=== PATIENT | male | born 1935 | race Caucasian/White ===

== ENCOUNTER 2017-05-13 05:48 | Day surgery (SDC) | payer MEDICARE, BC ==
[2017-05-12 14:27] VITALS: BMI 20.3
[2017-05-13 07:02] LABS: INR-International Normal Ratio 1.3; PTT 36.9 SEC (22.9-36.1); Prothrombin Time 16.8 SEC (12.0-14.7)
[2017-05-13 07:06] LABS: #Basophils 0.1 thou/uL (0.0-0.2); #Eosinphils 0.3 thou/uL (0.0-0.7); #Lymphocytes 1.4 thou/uL (1.20-3.40); #Monocytes 0.7 thou/uL (0.11-0.59); #Neutrophils 3.4 thou/uL (1.40-6.50); %Basophils 0.9 % (0.0-1.0); %Eosinophils 5.5 % (0.0-10.0); %Lymphocytes 23.7 % (21.0-51.0); %Monocytes 12.4 % (0.0-10.0); %Neutrophils 57.5 % (42.0-75.0); Hemoglobin 7.9 g/dL (14.0-18.0); Mean Corpuscular HGB CONC 29.9 g/dL (32.0-36.0); Mean Corpuscular Hemoglobin 23.1 pg (27.0-31.0); Mean Corpuscular Volume 77.2 fl (80.0-94.0); Mean Platelet Volume 8.5 fL (7.4-10.4); Platelet Count 202 thou/uL (130-400); RBC Distribution Width 16.1 % (11.5-14.5); White Blood Cell (WBC) Count 5.9 thou/uL (4.8-10.8)
[2017-05-13 07:32] LABS: Hypochromia SLIGHT = 6-15 cells (100X) (0-5/hpf); MDiff Complete? YES; Microcytosis SLIGHT = 6-15 cells (100X) (0-5/hpf); Polychromasia SLIGHT = 2-3 cells (100X) (0-2/hpf)
[2017-05-13 07:43] LABS: Anion Gap 11 mmol/L (10-20); BUN (Urea Nitrogen) 38 mg/dL (8.4-25.7); Calc. Creatinine Clearance 28 mL/min (70-130); Calcium 9.3 mg/dL (7.8-10.44); Carbon Dioxide 28 mmol/L (23-31); Chloride 98 mmol/L (98-107); Estimated GFR-MDRD 35; Glucose 114 mg/dL (83-110); Sodium 133 mmol/L (136-145)
[2017-05-13] MEDS ORDERED: Fentanyl 100 MCG/2 ML VIAL ONE (07:48)
[2017-05-13] MEDS ORDERED: Midazolam HCl 2 mg/2 ml Vial ONE (07:48)
[2017-05-13] MEDS ORDERED: CEFAZOLIN/Water 2 GM/20 ML SYRINGE ONE (08:01)
[2017-05-13] MEDS ORDERED: CEFAZOLIN 1 GM VIAL ONE (08:01)
[2017-05-13] MEDS ORDERED: Gentamicin 80 MG/2 ML VIAL ONE (08:17)
[2017-05-13] MEDS ORDERED: Propofol 500 MG/50 ML VIAL ONE (08:50)
[2017-05-13] MEDS ORDERED: Ondansetron HCl/PF 4 MG/2 ML Vial IVP PRN (10:47)
[2017-05-13] MEDS ORDERED: diphenhydrAMINE 25 MG CAP PO PRN (10:47)
[2017-05-13] MEDS ORDERED: traMADol HCl 50 MG TAB PO PRN (10:47)
[2017-05-13] MEDS ORDERED: Acetaminophen 325 MG TAB PO PRN (10:47)
[2017-05-13] MEDS ORDERED: Acetaminophen/Codeine 30-300mg Tablet PO PRN ×2 (11:00)
[2017-05-13] MEDS ORDERED: HYDROcodone/Acetaminophen 5/325 mg Tablet PO PRN ×2 (11:00)
--- NOTE | 2017-05-13 12:00 | RAD ---
AP CHEST: Indication: AICD placement. Comparison: PA and lateral chest, 07-10-15 FINDINGS: There is worsening cardiomegaly. There is mild pulmonary vascular congestion. There are infrahilar ai rspace opacities bilaterally which may be related to airspace edema versus pneumonia. There are small bilateral pleural effusions, right greater than left. There is subcutaneous emphysema overlying the left chest wall possibly related to patient's recent placement of an AICD. No definite pneumothorax i s evident. IMPRESSION: 1. Findings suggesting mild CHF. 2. Subcutaneous emphysema overlying the left chest wall likely related to the patient's recent AICD p lacement. No definite pneumothorax is demonstrated. POS: [facility]
[2017-05-13] MEDS ORDERED: traMADol HCl 50 MG TAB ONE ×2 (12:39→14:00)
[2017-05-13] MEDS ORDERED: Acetaminophen/Codeine 30-300mg Tablet ONE (14:52)
[2017-05-13] MEDS ORDERED: Propofol 200 MG/20 ML VIAL ONE (15:39)
[2017-05-13] MEDS ORDERED: PHENYLEPHRINE-NS 100 MCG/ML 10 ML SYRINGE ONE (15:39)
[2017-05-13] MEDS ORDERED: ePHEDrine/0.9% NaCl/PF SYRINGE 50 mg/10 ml ONE (15:39)
[2017-05-13] MEDS ORDERED: Iopamidol 370 76% 50 ML VIAL FS ONE (17:21)
--- NOTE | 2017-05-28 13:28 | EKG ---
Test Reason : PREOP Blood Pressure : / mmHG Vent. Rate : 073 BPM Atrial Rate : 083 BPM P-R Int : 000 ms QRS Dur : 128 ms QT Int : 440 ms P-R-T Axes : 000 -78 096 degrees QTc Int : 484 ms Atrial fibrillation Left axis deviation Right bundle branch block Inferior infarct (cited on or before 05-NOV-2014) Cannot rule out Anterior infarct (cited on or before 05-NOV-2014) Abnormal ECG When compared with ECG of 23-OCT-2015 11:55, Right bundle branch block is now Present Confirmed by EDGAR HERNANDEZ MD ([id number]) on 05/28/2017 1:27:42 PM Referred By: NARINDER Confirmed By:EDGAR HERNANDEZ MD
--- NOTE | 2017-05-29 18:56 | OP ---
DATE OF PROCEDURE: 05/13/2017 [employer]EARCH [employer]OC[employer]ATE QUALITY CONTROL QC: Chacho Yang DO PREOPERATIVE DIAGNOSES: 1. 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 2. Class III congestive heart failure with left bundle branch block and ventricular dyssynchrony. 3. Chronic atrial fibrillation with slow ventricular response. 4. Requirement for negatively chronotropic medication. POSTOPERATIVE DIAGNOSES: Inducible ventricular tachycardia/ventricular fibrillation (correctly detected and terminated by Medtronic [id number] implantable cardioverter defibrillator generator with right ventricular transvenous defibrillator lead and left ventricular pacing lead). PROCEDURES: 1. Electrophysiologic study (defibrillation threshold testing) during ICD implantation. 2. Implantation of biventricular non-thoracotomy ICD generator with right ventricular transvenous defibrillator lead and left ventricular pacing lead. GENERATOR: Medtronic [id number] SERIAL NUMBER: [id number] TRANSVENOUS DEFIBRILLATOR LEAD: Medtronic [id number] SERIAL NUMBER: [id number] LEFT VENTRICULAR LEAD (VIA CORONARY SINUS): Medtronic [id number] SERIAL NUMBER: [id number] COMPLICATIONS: None. DESCRIPTION OF PROCEDURE: This patient was brought to the cardiac electrophysiology lab in a nonsedated and postabsorptive state. The left chest area was prepped and sterile drapes applied. Lidocaine 1% was utilized for local infiltration. Sedation was provided by the Department of Anesthesiology. An incision was made beneath the left clavicle for access to the left subclavian vein and for construction of prepectoral pocket. The left subclavian vein was cannulated with a peel-away introducer for introduction of the right ventricular (RV) transvenous defibrillator lead. A second venipuncture was utilized for the left ventricular lead. At the RV apex, ventricular capture thresholds and measurements were as follows: Bipolar tip negative, 0.5 millisecond pulse width, 1.6 V, 5.3 mA, 365 ohms, 1.2 mV. The coronary sinus was cannulated and was visualized with contrast. A pulmonary artery catheter and Terumo Glidewire were utilized. The left ventricular lead was placed in a posterolateral cardiac vein. The left ventricular thresholds and measurements were as follows: Unipolar tip negative, 0.5 msec pulse width, 1.5 V, 5.3 mA, 338 ohms, 7.8 mV. The leads were secured with 0 Ethibond. The new ICD generator was attached to the preexisting leads. Ventricular fibrillation was induced utilizing a T shock method. Ventricular fibrillation was successfully terminated with energy levels of 25.0 joules with lead impedance of 30 ohms. All defibrillation was biphasic. The generator with leads were secured in the pocket with 0 Ethibond. Subsequent layers were closed with two layers of 2-0 PDS followed by subcuticular 5-0 PDS. A sterile bandage was applied and the patient returned to outpatient monitoring area in stable condition. IMPRESSION: Ventricular tachycardia/ventricular fibrillation (correctly detected and terminated by Medtronic [id number] ICD generator with right ventricular transvenous defibrillator lead and left ventricular pacing lead). DISPOSITION: This patient has received nonpharmacologic therapy for their risk of recurrent ventricular tachyarrhythmia. He will follow up in the Electrophysiology Clinic in approximately 2-3 weeks. Multiple sites within the right ventricle were tested for placement of the right ventricular lead and poor R-wave voltage was noted throughout the right ventricle. Ventricular fibrillation was appropriately sensed and no further revision was warranted. BLAKED
== END 2017-05-13 15:44 | disposition home or self-care (01) ==
LOC: CCL 05:48
PROC: 0JH608Z Insertion of Defibrillator Generator into Chest Subcutaneous Tissue and Fascia, Open Approach (ICD-10-PCS; principal; 2017-05-13)
PROC: 02HK3KZ Insertion of Defibrillator Lead into Right Ventricle, Percutaneous Approach (ICD-10-PCS; 2017-05-13)
DX: I49.01 Ventricular fibrillation (principal); I47.2 Ventricular tachycardia; I48.2 Chronic atrial fibrillation; I42.8 Other cardiomyopathies; I13.0 Hypertensive heart and chronic kidney disease with heart failure and stage 1 through stage 4 chronic kidney disease, or unspecified chronic kidney disease; E11.22 Type 2 diabetes mellitus with diabetic chronic kidney disease; N18.3 Chronic kidney disease, stage 3 (moderate); I50.42 Chronic combined systolic (congestive) and diastolic (congestive) heart failure; J44.9 Chronic obstructive pulmonary disease, unspecified; J45.909 Unspecified asthma, uncomplicated; E78.5 Hyperlipidemia, unspecified; Z88.8 Allergy status to other drugs, medicaments and biological substances; Z79.01 Long term (current) use of anticoagulants; Z79.84 Long term (current) use of oral hypoglycemic drugs; Z79.899 Other long term (current) drug therapy; Z98.890 Other specified postprocedural states
CPT/HCPCS: 33225; 33249; 71010; 80048; 85025; 85610; 85730; 93005; 93641; C1769; C1882; C1895; C1900; 93010; J0690; J1580; J2250; J2704; J3010; J3370

== ENCOUNTER 2017-06-18 09:58 | Inpatient (IN) | payer MEDICARE, BC ==
[2017-06-18 10:55] LABS: INR-International Normal Ratio 1.5; PTT 35.7 SEC (22.9-36.1); Prothrombin Time 18.5 SEC (12.0-14.7)
--- NOTE | 2017-06-18 11:05 | RAD ---
CHEST 1 VIEW: HISTORY: Hypotension. Dyspnea. COMPARISON: 05/13/17. FINDINGS: Cardiac silhouette is magnified and enlarged. It is partially obscured by patchy bibasilar infiltrat es and pleural fluid. Pulmonary vasculature is upper limits of normal. Mediastinum is midline with dual-lead left subclavian cardiac electronic device. IMPRESSION: 1. Bibasilar infiltrates, right greater than left, with pleural fluid. Pulmonary vasculature is not significantly engorged. Clinical correlation regarding other signs and symptoms of bibasilar pneumo nitis versus other cause for findings is required. 2. Cardiomegaly. POS: [facility]
[2017-06-18 11:12] LABS: ALT (SGPT) 12 U/L (8-55); AST (SGOT) 21 U/L (5-34); Albumin 3.4 g/dL (3.4-4.8); Alkaline Phosphatase 121 U/L (40-150); Anion Gap 13 mmol/L (10-20); BUN (Urea Nitrogen) 32 mg/dL (8.4-25.7); Bilirubin, Total 0.9 mg/dL (0.2-1.2); CK (CPK) 72 U/L (30-200); Calc. Creatinine Clearance 0 mL/min (70-130); Calcium 8.9 mg/dL (7.8-10.44); Carbon Dioxide 25 mmol/L (23-31); Chloride 102 mmol/L (98-107); Estimated GFR-MDRD 38; Globulin 3.4 g/dL (2.4-3.5); Glucose 114 mg/dL (83-110); Potassium 4.1 mmol/L (3.5-5.1); Protein, Total 6.8 g/dL (5.8-8.1); Sodium 136 mmol/L (136-145); Troponin I 0.197 ng/mL (< 0.028)
[2017-06-18 11:20] LABS: #Eosinphils 0.3 thou/uL (0.0-0.7); #Lymphocytes 1.3 thou/uL (1.20-3.40); #Monocytes 0.7 thou/uL (0.11-0.59); #Neutrophils 3.8 thou/uL (1.40-6.50); %Basophils 0.7 % (0.0-1.0); %Eosinophils 4.8 % (0.0-10.0); %Monocytes 11.6 % (0.0-10.0); %Neutrophils 61.9 % (42.0-75.0); Anisocytosis SLIGHT = 6-15 cells (100X) (0-5/hpf); Hemoglobin 7.5 g/dL (14.0-18.0); Hypochromia SLIGHT = 6-15 cells (100X) (0-5/hpf); MDiff Complete? YES; Mean Corpuscular HGB CONC 28.5 g/dL (32.0-36.0); Mean Corpuscular Hemoglobin 20.9 pg (27.0-31.0); Mean Corpuscular Volume 73.3 fl (80.0-94.0); Mean Platelet Volume 10.9 fL (7.4-10.4); Microcytosis SLIGHT = 6-15 cells (100X) (0-5/hpf); Platelet Count 161 thou/uL (130-400); RBC Distribution Width 17.2 % (11.5-14.5); Red Blood Cell (RBC) Count 3.57 mill/uL (4.70-6.10); Target Cells SLIGHT = 2-5 cells (100X) (0-1/hpf); White Blood Cell (WBC) Count 6.1 thou/uL (4.8-10.8)
[2017-06-18] MEDS ORDERED: Ondansetron ODT 4 MG TAB SL PRN (13:26)
[2017-06-18] MEDS ORDERED: Acetaminophen 325 MG TAB PO PRN ×2 (13:26→13:28)
[2017-06-18] MEDS ORDERED: Ondansetron HCl/PF 4 MG/2 ML Vial IVP PRN ×2 (13:26→13:28)
[2017-06-18 13:28] LABS: Bilirubin Negative (Negative); Blood, Urine Negative (Negative); Clarity CLEAR (Clear); Glucose, Urine (Dipstick) Negative (Negative); Leukocyte Negative (Negative); Nitrite Negative (Negative); Protein, Urine (Dipstick) Negative (Neg-Trace); Specific Gravity, Urine 1.014 (1.002-1.036); pH, Urine 7.5 (5.0-9.0)
[2017-06-18] MEDS ORDERED: Loperamide HCl 2 MG CAP PO PRN (13:28)
[2017-06-18] MEDS ORDERED: cefTRIAXone\\ROCEPHIN 1 GM in Sodium Chloride 0.9% 100 ML IVPB SCH (13:28)
[2017-06-18] MEDS ORDERED: Nitroglycerin 0.4 MG TAB (25 Tab Bottle) SL PRN (13:28)
[2017-06-18] MEDS ORDERED: Ondansetron ODT 4 MG TAB PO PRN (13:28)
[2017-06-18] MEDS ORDERED: Artificial Tears 18 DROP/0.9 ML EA EYE PRN (13:28)
[2017-06-18] MEDS ORDERED: hydrALAZINE 20 MG/ML VIAL SLOW IVP PRN (13:28)
[2017-06-18] MEDS ORDERED: Eucerin (Mineral Oil/Petrolatum,White) 30 gm Jar TOP PRN (13:28)
[2017-06-18] MEDS ORDERED: Dextrose 5% in Water 1,000 ML IV PRN (13:28)
[2017-06-18] MEDS ORDERED: HYDROcodone/Acetaminophen 5/325 mg Tablet PO PRN (13:28)
[2017-06-18] MEDS ORDERED: Mag-Al 1200 mg/1200 mg/30 ML UDCUP PO PRN (13:28)
[2017-06-18] MEDS ORDERED: Loratadine 10 MG TAB PO PRN (13:28)
[2017-06-18] MEDS ORDERED: Sodium Chloride 0.65% Nasal 44 ML BOT EA NARE PRN (13:28)
[2017-06-18] MEDS ORDERED: Zolpidem Tartrate 5 MG TAB PO PRN (13:28)
[2017-06-18] MEDS ORDERED: Milk Of Magnesia 30 ML UDCUP PO PRN (13:28)
[2017-06-18] MEDS ORDERED: Chloraseptic Spray 180 ml Bottle PO PRN (13:28)
[2017-06-18] MEDS ORDERED: Senokot 8.6 MG TAB PO PRN (13:28)
[2017-06-18] MEDS ORDERED: Dextrose 50% Abboject 50 ML SYRINGE SLOW IVP PRN (13:28)
[2017-06-18] MEDS ORDERED: Diabetic Tussin 200 MG/10 ML UDCUP PO PRN (13:28)
[2017-06-18 13:44] VITALS: BMI 23.1
[2017-06-18] MEDS ORDERED: Furosemide 20 MG/2 ML VIAL SLOW IVP SCH (13:45)
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
[2017-06-18 15:01] LABS: Troponin I 0.235 ng/mL (< 0.028)
[2017-06-18] MEDS ORDERED: HumaLOG 300 UNITS/3 ML VIAL SC PRN ×2 (15:01)
[2017-06-18] MEDS: Ferrous Sulfate 325 MG TAB PO SCH (16:46)
[2017-06-18 17:28] LABS: Troponin I 0.218 ng/mL (< 0.028)
[2017-06-18] MEDS: Apixaban 5 MG TAB PO SCH (21:12)
[2017-06-18] MEDS: Potassium Chloride 10 MEQ TAB PO SCH (21:12)
[2017-06-18] MEDS: Tamsulosin HCl 0.4 MG CAP PO SCH (21:13)
[2017-06-18] MEDS: Loratadine 10 MG TAB PO SCH (21:13)
[2017-06-19 06:14] LABS: Hemoglobin A1c 6.7 % (4.0-6.0)
[2017-06-19 06:16] LABS: #Basophils 0.1 thou/uL (0.0-0.2); #Eosinphils 0.3 thou/uL (0.0-0.7); #Lymphocytes 1.4 thou/uL (1.20-3.40); #Neutrophils 5.1 thou/uL (1.40-6.50); %Basophils 1.2 % (0.0-1.0); %Eosinophils 4.1 % (0.0-10.0); %Lymphocytes 17.7 % (21.0-51.0); Hemoglobin 8.4 g/dL (14.0-18.0); Mean Corpuscular HGB CONC 28.9 g/dL (32.0-36.0); Mean Corpuscular Hemoglobin 21.5 pg (27.0-31.0); Mean Corpuscular Volume 74.5 fl (80.0-94.0); Platelet Count 173 thou/uL (130-400); RBC Distribution Width 18.1 % (11.5-14.5); White Blood Cell (WBC) Count 7.9 thou/uL (4.8-10.8)
[2017-06-19 06:18] LABS: ALT (SGPT) 11 U/L (8-55); AST (SGOT) 22 U/L (5-34); Albumin 3.2 g/dL (3.4-4.8); Alkaline Phosphatase 116 U/L (40-150); Anion Gap 12 mmol/L (10-20); BUN (Urea Nitrogen) 35 mg/dL (8.4-25.7); Calc. Creatinine Clearance 29 mL/min (70-130); Calcium 8.9 mg/dL (7.8-10.44); Carbon Dioxide 25 mmol/L (23-31); Chloride 102 mmol/L (98-107); Estimated GFR-MDRD 33; Globulin 3.3 g/dL (2.4-3.5); Glucose 112 mg/dL (83-110); Iron 10 ug/dL (65-175); Iron Binding Capacity, Total 400 mcg/dL (261-462); Potassium 4.2 mmol/L (3.5-5.1); Protein, Total 6.5 g/dL (5.8-8.1); Sodium 135 mmol/L (136-145)
[2017-06-19] MEDS: Alogliptin 25 MG TAB PO SCH (08:54)
[2017-06-19] MEDS: Glimepiride 1 MG TAB PO SCH (08:54)
[2017-06-19] MEDS: Ferrous Sulfate 325 MG TAB PO SCH ×2 (08:55→16:27)
[2017-06-19] MEDS: Apixaban 5 MG TAB PO SCH ×2 (08:55→21:08)
[2017-06-19] MEDS: Potassium Chloride 10 MEQ TAB PO SCH ×2 (08:56→21:08)
[2017-06-19] MEDS: Finasteride 5 MG TAB PO SCH (08:56)
[2017-06-19] MEDS ORDERED: IRON SUCROSE COMPLEX 100 MG/5 ML SLOW IVP SCH (10:00)
--- NOTE | 2017-06-19 10:00 | PDOC.PN ---
- Subjective Encounter Start Date: 06/19/17 Encounter Start Time: 07:50 -: old records requested/rev pt is hard of hearing, daughter bedside, no fever - Objective Resuscitation Status: Resuscitation Status FULL:Full Resuscitation MAR Reviewed: Yes Vital Signs & Weight: Vital Signs (12 hours) Temp Pulse Resp BP Pulse Ox 06/19/17 07:30 98.3 F 81 16 118/70 97 06/19/17 04:56 98.1 F 79 16 114/63 96 Weight Weight 161 lb I&O: 06/18/17 06/19/17 06/20/17 06:59 06:59 06:59 Intake Total 1180 Output Total 200 Balance 980 Result Diagrams: 06/19/17 05:17 06/19/17 05:17 Additional Labs: Accuchecks 06/19/17 06/18/17 06/18/17 06:11 20:05 16:54 POC Glucose 121 H 140 H 192 H EKG Reviewed by me: Yes Phys Exam - Physical Examination Constitutional: NAD HEENT: PERRLA, moist MMs, sclera anicteric Neck: no JVD, supple Respiratory: no wheezing, no rales, no rhonchi Cardiovascular: RRR, no significant murmur, no rub Gastrointestinal: soft, non-tender, no distention, positive bowel sounds Musculoskeletal: pulses present, edema present Neurological: non-focal, normal sensation Psychiatric: normal affect, A&O x 3 Skin: no rash, normal turgor Dx/Plan (1) Symptomatic anemia Code(s): D64.9 - ANEMIA, UNSPECIFIED Status: Acute Comment: s/p 1 unit PRBC (2) Hypotension Status: Resolved (3) Community acquired bacterial pneumonia Code(s): J15.9 - UNSPECIFIED BACTERIAL PNEUMONIA Status: Acute (4) Alzheimer's dementia Code(s): G30.9 - ALZHEIMER'S DISEASE, UNSPECIFIED Status: Chronic (5) Anemia, normocytic normochromic Code(s): D64.9 - ANEMIA, UNSPECIFIED Status: Chronic (6) CKD (chronic kidney disease) stage 3, GFR 30-59 ml/min Code(s): N18.3 - CHRONIC KIDNEY DISEASE, STAGE 3 (MODERATE) Status: Chronic (7) Chronic atrial fibrillation Code(s): I48.2 - CHRONIC ATRIAL FIBRILLATION Status: Chronic (8) Chronic systolic (congestive) heart failure Code(s): I50.22 - CHRONIC SYSTOLIC (CONGESTIVE) HEART FAILURE Status: Chronic (9) DM type 2 (diabetes mellitus, type 2) Status: Chronic (10) Dyslipidemia Code(s): E78.5 - HYPERLIPIDEMIA, UNSPECIFIED Status: Chronic (11) H/O: CVA (cerebrovascular accident) Code(s): Z86.73 - PRSNL HX OF TIA (TIA), AND CEREB INFRC W/O RESID DEFICITS Status: Chronic (12) Hypertension Code(s): I10 - ESSENTIAL (PRIMARY) HYPERTENSION Status: Chronic Qualifiers: Hypertension type: essential hypertension Qualified Code(s): I10 - Essential (primary) hypertension (13) Physical deconditioning Code(s): R53.81 - OTHER MALAISE Status: Chronic (14) Protein-calorie malnutrition, moderate Code(s): E44.0 - MODERATE PROTEIN-CALORIE MALNUTRITION Status: Chronic - Plan cont current plan of care, plan discussed w/ family, continue antibiotics, PT/OT * continue rocephin and levaquin * will give one dose of IV venofer * repeat labs tomorrow * start lasix as per home dose * continue PT/OT * medication reviewed as below * symptomatic treatment * discussed with daughter * continue selected home meds. Review of Systems - Review of Systems Constitutional: negative: fever, chills, sweats, weakness, malaise, other ENT: negative: Ear Pain, Ear Discharge, Nose Pain, Nose Discharge, Nose Congestion, Mouth Pain, Mouth Swelling, Throat Pain, Throat Swelling, Other Respiratory: negative: Cough, Dry, Shortness of Breath, Hemoptysis, SOB with Excertion, Pleuritic Pain, Sputum, Wheezing Cardiovascular: negative: chest pain, palpitations, orthopnea, paroxysmal nocturnal dyspnea, edema, light headedness, other Gastrointestinal: negative: Nausea, Vomiting, Abdominal Pain, Diarrhea, Constipation, Melena, Hematochezia, Other Genitourinary: negative: Dysuria, Frequency, Incontinence, Hematuria, Retention , Other Musculoskeletal: negative: Neck Pain, Shoulder Pain, Arm Pain, Back Pain, Hand Pain, Leg Pain, Foot Pain, Other Skin: negative: Rash, Lesions, Juno, Bruising, Other - Medications/Allergies Allergies/Adverse Reactions: Allergies Allergy/AdvReac Type Severity Reaction Status Date / Time aspirin Allergy GI bleed Verified 10/14/15 16:25 lisinopril Allergy cough Verified 10/14/15 16:25 trospium Allergy Verified 06/18/17 13:37 Medications: Current Medications Acetaminophen (Tylenol) 650 mg PO Q4H PRN PRN Reason: Headache/Fever or Pain Hydrocodone Bitart/Acetaminophen ([place]ord 5/325) 1 tab PO Q4H PRN PRN Reason: Moderate Pain (4-6) Al Hydroxide/Mg Hydroxide (Maalox) 30 ml PO Q6H PRN PRN Reason: Heartburn or Indigestion Albuterol/Ipratropium (Duoneb) 3 ml NEB [id number] PRN PRN Reason: SOB &/or Wheezing Alogliptin Benzoate (Alogliptin) 12.5 mg PO DAILY [facility] Last Admin: 06/19/17 08:54 Dose: 12.5 mg Apixaban (Eliquis) 2.5 mg PO BID [facility] Last Admin: 06/19/17 08:55 Dose: 2.5 mg Artificial Tears (Tears Naturale) 0 drop EA EYE PRN PRN PRN Reason: Dry Eyes Dextrose/Water (Dextrose 50%) 25 gm SLOW IVP PRN PRN PRN Reason: Hypoglycemia Ferrous Sulfate (Feosol) 325 mg PO BID-[facility] Last Admin: 06/19/17 08:55 Dose: 325 mg Finasteride (Proscar) 5 mg PO DAILY [facility] Last Admin: 06/19/17 08:56 Dose: 5 mg Glimepiride (Amaryl) 0.5 mg PO QAM-[facility] Last Admin: 06/19/17 08:54 Dose: 0.5 mg Glucagon (Glucagon) 1 mg IM PRN PRN PRN Reason: Hypoglycemia Guaifenesin (Robitussin Sf) 200 mg PO Q4H PRN PRN Reason: Cough Hydralazine HCl (Apresoline) 10 mg SLOW IVP Q4H PRN PRN Reason: Systolic BP > 180 Dextrose/Water (D5w) 1,000 mls @ 0 mls/hr IV .Q0M PRN; As Directed PRN Reason: Hypoglycemia Levofloxacin 500 mg/ Device 100 mls @ 100 mls/hr IVPB 1100 [facility] Ceftriaxone Sodium 1 gm/ (Syringe 0.4 ml/ Sterile Water) 10 mls @ 120 mls/hr SLOW IVP 1100 JOSUE Insulin Human Lispro (Humalog) 0 units SC .MODERATE SLIDING SC PRN PRN Reason: Moderate Correctional Scale Insulin Human Lispro (Humalog) 0 units SC .BEDTIME SLIDING SC PRN PRN Reason: Bedtime Correctional Scale Loperamide HCl (Imodium) 2 mg PO PRN PRN PRN Reason: Diarrhea/Loose Stools Loratadine (Claritin) 10 mg PO [facility] Last Admin: 06/18/17 21:13 Dose: 10 mg Magnesium Hydroxide (Milk Of Magnesium) 30 ml PO DAILYPRN PRN PRN Reason: Constipation Mineral Oil/White Petrolatum (Eucerin Cream) 0 gm TOP BIDPRN PRN PRN Reason: Dry Skin Nitroglycerin (Nitrostat) 0.4 mg SL Q5MIN PRN PRN Reason: Chest Pain (Darifenacin Hydrobromide [ Darifenacin Er] 7.5 Mg) 7.5 mg PO 1200 JOSUE (Tadalafil [Cialis] (5 Mg)) 5 mg PO [facility] Ondansetron HCl (Zofran Odt) 4 mg PO Q6H PRN PRN Reason: Nausea/Vomiting Ondansetron HCl (Zofran) 4 mg IVP Q6H PRN PRN Reason: Nausea/Vomiting Pantoprazole Sodium (Protonix) 40 mg PO DAILY [facility] Last Admin: 06/19/17 08:56 Dose: 40 mg Phenol (Chloraseptic [place] 180 Ml Bot) 0 ml PO PRN PRN PRN Reason: Sore Throat Potassium Chloride (Klor-Con 10) 10 meq PO BID [facility] Last Admin: 06/19/17 08:56 Dose: 10 meq Senna (Senokot) 2 tab PO HSPRN PRN PRN Reason: Constipation Sodium Chloride ([place] Nasal [place] 0.65%) 0 ml EA NARE QIDPRN PRN PRN Reason: Nasal Congestion Tamsulosin HCl (Flomax) 0.4 mg PO [facility] Last Admin: 06/18/17 21:13 Dose: 0.4 mg Zolpidem Tartrate (Ambien) 5 mg PO HSPRN PRN PRN Reason: Insomnia
[2017-06-19] MEDS ORDERED: Iron Sucrose Complex 100 MG in Sodium Chloride 0.9% 100 ML IVPB SCH (11:00)
[2017-06-19] MEDS: cefTRIAXone\\ROCEPHIN 1 GM, Syringe 0.4 ML in Sterile Water 9.6 ML SLOW IVP SCH (11:23)
[2017-06-19] MEDS: Furosemide 40 MG TAB PO SCH (14:14)
[2017-06-19] MEDS ORDERED: Cyanocobalamin 1000 MCG/ML VIAL IM SCH (17:00)
[2017-06-19] MEDS: Tamsulosin HCl 0.4 MG CAP PO SCH (21:08)
[2017-06-19] MEDS: Loratadine 10 MG TAB PO SCH (21:09)
[2017-06-19] MEDS: PATIENT'S HOME MEDICATION PO SCH (21:09)
[2017-06-20 05:43] LABS: Anion Gap 17 mmol/L (10-20); BUN (Urea Nitrogen) 34 mg/dL (8.4-25.7); Calc. Creatinine Clearance 30 mL/min (70-130); Calcium 8.9 mg/dL (7.8-10.44); Carbon Dioxide 20 mmol/L (23-31); Chloride 103 mmol/L (98-107); Estimated GFR-MDRD 33; Glucose 88 mg/dL (83-110); Potassium 3.9 mmol/L (3.5-5.1); Sodium 136 mmol/L (136-145)
[2017-06-20 05:46] LABS: #Eosinphils 0.4 thou/uL (0.0-0.7); #Lymphocytes 1.4 thou/uL (1.20-3.40); #Neutrophils 4.2 thou/uL (1.40-6.50); %Basophils 0.6 % (0.0-1.0); %Eosinophils 5.9 % (0.0-10.0); %Lymphocytes 20.5 % (21.0-51.0); %Monocytes 13.8 % (0.0-10.0); %Neutrophils 59.3 % (42.0-75.0); Hemoglobin 8.7 g/dL (14.0-18.0); Mean Corpuscular HGB CONC 29.1 g/dL (32.0-36.0); Mean Corpuscular Hemoglobin 21.8 pg (27.0-31.0); Mean Corpuscular Volume 74.8 fl (80.0-94.0); Mean Platelet Volume 10.8 fL (7.4-10.4); Platelet Count 180 thou/uL (130-400); RBC Distribution Width 18.7 % (11.5-14.5); Red Blood Cell (RBC) Count 3.99 mill/uL (4.70-6.10)
[2017-06-20] MEDS: Apixaban 5 MG TAB PO SCH ×2 (09:00→21:01)
[2017-06-20] MEDS: Finasteride 5 MG TAB PO SCH (09:01)
[2017-06-20] MEDS: Potassium Chloride 10 MEQ TAB PO SCH ×2 (09:02→21:02)
[2017-06-20] MEDS: Furosemide 40 MG TAB PO SCH ×2 (09:02→14:33)
[2017-06-20] MEDS: Alogliptin 25 MG TAB PO SCH (09:03)
[2017-06-20] MEDS: Ferrous Sulfate 325 MG TAB PO SCH ×2 (09:04→16:43)
--- NOTE | 2017-06-20 10:48 | PDOC.PN ---
- Subjective Encounter Start Date: 06/20/17 Encounter Start Time: 07:10 pt had voiding difficulty last night, he is constipated, he is weak - Objective Resuscitation Status: Resuscitation Status FULL:Full Resuscitation MAR Reviewed: Yes Vital Signs & Weight: Vital Signs (12 hours) Temp Pulse Resp BP Pulse Ox 06/20/17 08:50 98.4 F 85 14 118/73 99 06/20/17 03:17 98.4 F 88 20 111/65 98 Weight Admit Weight 161 lb Weight 161 lb I&O: 06/19/17 06/20/17 06/21/17 06:59 06:59 06:59 Intake Total 1180 Output Total 200 Balance 980 Result Diagrams: 06/20/17 04:54 06/20/17 04:54 Additional Labs: Accuchecks 06/20/17 06/20/17 06/19/17 09:51 05:48 20:25 POC Glucose 98 89 110 06/19/17 06/19/17 16:44 11:34 POC Glucose 117 H 122 H EKG Reviewed by me: Yes Phys Exam - Physical Examination Constitutional: NAD HEENT: PERRLA, moist MMs, sclera anicteric Neck: no JVD, supple Respiratory: no wheezing, no rales, no rhonchi Cardiovascular: RRR, no significant murmur, no rub Gastrointestinal: soft, non-tender, no distention, positive bowel sounds Musculoskeletal: no edema, pulses present Neurological: non-focal, normal sensation, moves all 4 limbs Lymphatic: no nodes Psychiatric: normal affect Skin: no rash, normal turgor Dx/Plan (1) Symptomatic anemia Code(s): D64.9 - ANEMIA, UNSPECIFIED Status: Acute Comment: s/p 1 unit PRBC (2) Hypotension Status: Resolved (3) Community acquired bacterial pneumonia Code(s): J15.9 - UNSPECIFIED BACTERIAL PNEUMONIA Status: Acute (4) Alzheimer's dementia Code(s): G30.9 - ALZHEIMER'S DISEASE, UNSPECIFIED Status: Chronic (5) Anemia, normocytic normochromic Code(s): D64.9 - ANEMIA, UNSPECIFIED Status: Chronic (6) CKD (chronic kidney disease) stage 3, GFR 30-59 ml/min Code(s): N18.3 - CHRONIC KIDNEY DISEASE, STAGE 3 (MODERATE) Status: Chronic (7) Chronic atrial fibrillation Code(s): I48.2 - CHRONIC ATRIAL FIBRILLATION Status: Chronic (8) Chronic systolic (congestive) heart failure Code(s): I50.22 - CHRONIC SYSTOLIC (CONGESTIVE) HEART FAILURE Status: Chronic (9) DM type 2 (diabetes mellitus, type 2) Status: Chronic (10) Dyslipidemia Code(s): E78.5 - HYPERLIPIDEMIA, UNSPECIFIED Status: Chronic (11) H/O: CVA (cerebrovascular accident) Code(s): Z86.73 - PRSNL HX OF TIA (TIA), AND CEREB INFRC W/O RESID DEFICITS Status: Chronic (12) Hypertension Code(s): I10 - ESSENTIAL (PRIMARY) HYPERTENSION Status: Chronic Qualifiers: Hypertension type: essential hypertension Qualified Code(s): I10 - Essential (primary) hypertension (13) Physical deconditioning Code(s): R53.81 - OTHER MALAISE Status: Chronic (14) Protein-calorie malnutrition, moderate Code(s): E44.0 - MODERATE PROTEIN-CALORIE MALNUTRITION Status: Chronic - Plan cont current plan of care, plan discussed w/ family, continue antibiotics, PT/OT , respiratory therapy * stool softener today * medication reviewed as below * symptomatic treatment * continue levaquin * needs more PT. * discussed with daughter Review of Systems - Review of Systems Constitutional: weakness. negative: fever, chills, sweats, malaise, other ENT: negative: Ear Pain, Ear Discharge, Nose Pain, Nose Discharge, Nose Congestion, Mouth Pain, Mouth Swelling, Throat Pain, Throat Swelling, Other Respiratory: negative: Cough, Dry, Shortness of Breath, Hemoptysis, SOB with Excertion, Pleuritic Pain, Sputum, Wheezing Cardiovascular: negative: chest pain, palpitations, orthopnea, paroxysmal nocturnal dyspnea, edema, light headedness, other Gastrointestinal: Constipation. negative: Nausea, Vomiting, Abdominal Pain, Diarrhea, Melena, Hematochezia, Other Genitourinary: negative: Dysuria, Frequency, Incontinence, Hematuria, Retention , Other Musculoskeletal: negative: Neck Pain, Shoulder Pain, Arm Pain, Back Pain, Hand Pain, Leg Pain, Foot Pain, Other Skin: negative: Rash, Lesions, Juno, Bruising, Other - Medications/Allergies Allergies/Adverse Reactions: Allergies Allergy/AdvReac Type Severity Reaction Status Date / Time aspirin Allergy GI bleed Verified 10/14/15 16:25 lisinopril Allergy cough Verified 10/14/15 16:25 trospium Allergy Verified 06/18/17 13:37 Medications: Current Medications Acetaminophen (Tylenol) 650 mg PO Q4H PRN PRN Reason: Headache/Fever or Pain Hydrocodone Bitart/Acetaminophen ([place] 5/325) 1 tab PO Q4H PRN PRN Reason: Moderate Pain (4-6) Al Hydroxide/Mg Hydroxide (Maalox) 30 ml PO Q6H PRN PRN Reason: Heartburn or Indigestion Last Admin: 06/20/17 09:04 Dose: 30 ml Albuterol/Ipratropium (Duoneb) 3 ml NEB [id number] PRN PRN Reason: SOB &/or Wheezing Alogliptin Benzoate (Alogliptin) 12.5 mg PO DAILY [facility] Last Admin: 06/20/17 09:03 Dose: 12.5 mg Apixaban (Eliquis) 2.5 mg PO BID [facility] Last Admin: 06/20/17 09:00 Dose: 2.5 mg Artificial Tears (Tears Naturale) 0 drop EA EYE PRN PRN PRN Reason: Dry Eyes Dextrose/Water (Dextrose 50%) 25 gm SLOW IVP PRN PRN PRN Reason: Hypoglycemia Ferrous Sulfate (Feosol) 325 mg PO BID[facility] Last Admin: 06/20/17 09:04 Dose: 325 mg Finasteride (Proscar) 5 mg PO DAILY [facility] Last Admin: 06/20/17 09:01 Dose: 5 mg Furosemide (Lasix) 40 mg PO 0900,1400 [facility] Last Admin: 06/20/17 09:02 Dose: 40 mg [facility] Admin: 06/19/17 08:54 Dose: 0.5 mg Glucagon (Glucagon) 1 mg IM PRN PRN PRN Reason: Hypoglycemia Guaifenesin (Robitussin Sf) 200 mg PO Q4H PRN PRN Reason: Cough Hydralazine HCl (Apresoline) 10 mg SLOW IVP Q4H PRN PRN Reason: Systolic BP > 180 Dextrose/Water (D5w) 1,000 mls @ 0 mls/hr IV .Q0M PRN; As Directed PRN Reason: Hypoglycemia Levofloxacin 500 mg/ Device 100 mls @ 100 mls/hr IVPB 1100 [facility] Last Admin: 06/19/17 12:06 Dose: 100 mls Ceftriaxone Sodium 1 gm/ (Syringe 0.4 ml/ Sterile Water) 10 mls @ 120 mls/hr SLOW IVP 1100 [facility] Last Admin: 06/19/17 11:23 Dose: 10 mls Insulin Human Lispro (Humalog) 0 units SC .MODERATE SLIDING SC PRN PRN Reason: Moderate Correctional Scale Insulin Human Lispro (Humalog) 0 units SC .BEDTIME SLIDING SC PRN PRN Reason: Bedtime Correctional Scale Loperamide HCl (Imodium) 2 mg PO PRN PRN PRN Reason: Diarrhea/Loose Stools Loratadine (Claritin) 10 mg PO [facility] Last Admin: 06/19/17 21:09 Dose: 10 mg Magnesium Hydroxide (Milk Of Magnesium) 30 ml PO DAILYPRN PRN PRN Reason: Constipation Mineral Oil/White Petrolatum (Eucerin Cream) 0 gm TOP BIDPRN PRN PRN Reason: Dry Skin Nitroglycerin (Nitrostat) 0.4 mg SL Q5MIN PRN PRN Reason: Chest Pain Ondansetron HCl (Zofran Odt) 4 mg PO Q6H PRN PRN Reason: Nausea/Vomiting Ondansetron HCl (Zofran) 4 mg IVP Q6H PRN PRN Reason: Nausea/Vomiting Pantoprazole Sodium (Protonix) 40 mg PO DAILY [facility] Last Admin: 06/20/17 09:02 Dose: 40 mg (Darifenacin Hydrobromide [ Darifenacin Er] 7.5 Mg) 0 each PO 1200 [facility] Patient Own Medication (Patient's Home Medication) 0 each PO [facility] Last Admin: 06/19/17 21:09 Dose: 1 each Phenol (Chloraseptic [place] 180 Ml Bot) 0 ml PO PRN PRN PRN Reason: Sore Throat Polyethylene Glycol (Miralax) 17 gm PO DAILY [facility] Potassium Chloride (Klor-Con 10) 10 meq PO BID [facility] Last Admin: 06/20/17 09:02 Dose: 10 meq Senna (Senokot) 2 tab PO HSPRN PRN PRN Reason: Constipation Sodium Chloride ([place] Nasal [place] 0.65%) 0 ml EA NARE QIDPRN PRN PRN Reason: Nasal Congestion Tamsulosin HCl (Flomax) 0.4 mg PO HS [facility] Last Admin: 06/19/17 21:08 Dose: 0.4 mg Zolpidem Tartrate (Ambien) 5 mg PO HSPRN PRN PRN Reason: Insomnia
[2017-06-20] MEDS: Glimepiride 1 MG TAB PO SCH (11:19)
[2017-06-20] MEDS: cefTRIAXone\\ROCEPHIN 1 GM, Syringe 0.4 ML in Sterile Water 9.6 ML SLOW IVP SCH (11:20)
[2017-06-20] MEDS ORDERED: DARIFENACIN HYDROBROMIDE 7.5 MG PO SCH (12:00)
[2017-06-20] MEDS: PATIENT'S HOME MEDICATION PO SCH (21:01)
[2017-06-20] MEDS: Tamsulosin HCl 0.4 MG CAP PO SCH (21:02)
[2017-06-20] MEDS: Loratadine 10 MG TAB PO SCH (21:02)
[2017-06-21 08:00] LABS: #Basophils 0.1 thou/uL (0.0-0.2); #Eosinphils 0.6 thou/uL (0.0-0.7); #Lymphocytes 1.6 thou/uL (1.20-3.40); #Neutrophils 4.7 thou/uL (1.40-6.50); %Basophils 0.8 % (0.0-1.0); %Eosinophils 7.5 % (0.0-10.0); %Lymphocytes 19.9 % (21.0-51.0); %Monocytes 12.2 % (0.0-10.0); %Neutrophils 59.6 % (42.0-75.0); Hemoglobin 8.8 g/dL (14.0-18.0); Mean Corpuscular HGB CONC 29.4 g/dL (32.0-36.0); Mean Corpuscular Volume 74.7 fl (80.0-94.0); Mean Platelet Volume 10.7 fL (7.4-10.4); Platelet Count 175 thou/uL (130-400); White Blood Cell (WBC) Count 7.9 thou/uL (4.8-10.8)
[2017-06-21 08:03] LABS: Anion Gap 15 mmol/L (10-20); BUN (Urea Nitrogen) 31 mg/dL (8.4-25.7); Calc. Creatinine Clearance 29 mL/min (70-130); Carbon Dioxide 23 mmol/L (23-31); Cardiac Risk 2.9 (Less than 4.5); Chloride 102 mmol/L (98-107); Cholesterol 102 mg/dl (< 200 Desired); Estimated GFR-MDRD 33; Glucose 78 mg/dL (83-110); HDL Cholesterol 35 mg/dL (>60 Neg Risk); LDL Cholesterol, Calculated 53 mg/dL; Sodium 136 mmol/L (136-145); Triglycerides 72 mg/dL (Less than 150)
[2017-06-21] MEDS: Glimepiride 1 MG TAB PO SCH (08:17)
[2017-06-21] MEDS: Alogliptin 25 MG TAB PO SCH (08:18)
[2017-06-21] MEDS: Furosemide 40 MG TAB PO SCH (08:19)
[2017-06-21] MEDS: Apixaban 5 MG TAB PO SCH (08:19)
[2017-06-21] MEDS: Ferrous Sulfate 325 MG TAB PO SCH (08:20)
[2017-06-21] MEDS: Potassium Chloride 10 MEQ TAB PO SCH (08:20)
[2017-06-21] MEDS: Finasteride 5 MG TAB PO SCH (08:20)
[2017-06-21 08:36] LABS: Hypochromia MODERATE=16-30 cells (100X) (0-5/hpf); MDiff Complete? YES; Microcytosis SLIGHT = 6-15 cells (100X) (0-5/hpf); PLT Morphology Comment Appears Adequate; Polychromasia SLIGHT = 2-3 cells (100X) (0-2/hpf); Target Cells SLIGHT = 2-5 cells (100X) (0-1/hpf)
[2017-06-21] MEDS ORDERED: Polyethylene Glycol 3350 17 GM Packet PO SCH (09:00)
[2017-06-21 09:06] VITALS: BP 105/60; TEMP 97.8
--- NOTE | 2017-06-21 12:39 | DIS ---
DATE OF ADMISSION: 06/18/2017 DATE OF DISCHARGE: 06/21/2017 DISCHARGE DIAGNOSES: 1. Symptomatic anemia, status post 1 unit of packed red blood cells, stable. 2. Hypotension, resolved. 3. Community-acquired bacterial pneumonia, bibasilar, suspect gram positive cocci, improved. 4. Chronic normocytic anemia secondary to chronic kidney disease. 5. Chronic kidney disease, stage 3. 6. Chronic atrial fibrillation with chronic anticoagulation with Eliquis. 7. Hypertension, stable. 8. Dyslipidemia. 9. Physical deconditioning. 10. Right second toe superficial ulcer. CONSULTATIONS: None. PERTINENT LAB AND X-RAY FINDINGS: Creatinine ranged between 1.71-1.96, estimated GFR ranged between 33-38. Hemoglobin A1c 6.7. Lactic acid level 1.2, calcium 8.9. Troponin I ranged between 0.197-0.2 35. LFTs within normal limits. Albumin 3.4. Serum iron level 10, TIBC 400, percent saturation 3, f erritin 36.35. CBC showed a hemoglobin ranging between 7.5-8.8, MCV 75, platelet count 175. Stool H emoccult negative x1 on 06/18/2017. Blood culture x2 dated 06/18/2017 showed no growth at 48 hours. Urine culture dated 06/18/2017 showed less than 5000 colonies of nonhemolytic Streptococcus species. Respiratory virus panel by PCR 06/18/2017 negative. Portable chest x-ray dated 06/18/2017 showed b ibasilar infiltrates, right greater than left with associated pleural effusion. HOSPITAL COURSE: Patient was admitted to the telemetry unit after initially presenting with generali zed weakness and cough with shortness of breath. The patient underwent extensive evaluation includin g chest imaging showing evidence of bibasilar infiltrates concerning for pneumonitis/pneumonia. The patient received IV Rocephin and Levaquin and was treated for suspected community-acquired pneumonia. The patient was also noted with acute on chronic anemia in the context of chronic kidney disease. The patient received 1 unit of packed red blood cells and monitored with serial H&H's. The patient's overall hemoglobin remained stable through the remainder of the hospital course with stool Hemoccult negative x1. The patient also was noted with mild hypotension, which corrected after 1 unit of pack ed red blood cells. The patient was evaluated by physical and occupational therapy due to generalize d weakness, however, was ambulating with use of a rolling walker with recommendations for home physic al therapy with home health services after discharge. The patient also received local wound care for a superficial right second toe ulcer and treated with moisturizing agent and topical iodine. No spe cific surgical intervention recommended currently. Overall, patient remained clinically stable [facility] the hospital course, tolerating regular oral intake, remaining afebrile, ambulating with the us e of a rolling walker, and tolerating regular oral intake. The patient overall clinically stable and ready for discharge on 06/21/2017. DISCHARGE MEDICATIONS: 1. Eliquis 2.5 mg 1 tab p.o. b.i.d. 2. Cyanocobalamin 1000 mcg intramuscularly every 30 days. 3. Darifenacin extended release 7.5 mg p.o. daily. 4. Proscar 5 mg one tablet p.o. daily. 5. Lasix 20 mg p.o. b.i.d. 6. Amaryl 0.25 mg p.o. daily. 7. Xyzal 5 mg p.o. at bedtime. 8. Levaquin 500 mg 1 tab p.o. daily x7 days. 9. Zaroxolyn 5 mg 1 tablet p.o. daily. 10. Klor-Con 10 mEq p.o. b.i.d. 11. Januvia 50 mg p.o. daily. 12. Cialis 5 mg p.o. at bedtime. 13. Flomax 0.4 mg p.o. at bedtime. 14. Ferrous sulfate 325 mg p.o. b.i.d. FOLLOWUP: The patient may follow up with his primary care provider, Dr. Cheryl Lopez within 7 day s of discharge. CONDITION ON DISCHARGE: Stable. ACTIVITY: Ad mily. DIET: ADA. CODE STATUS: FULL. DISPOSITION: Home, 06/21/2017. Total time preparing and coordinating discharge is 32 minutes.
--- NOTE | 2017-07-02 14:49 | EKG ---
Test Reason : LOW BP Blood Pressure : / mmHG Vent. Rate : 080 BPM Atrial Rate : 115 BPM P-R Int : 000 ms QRS Dur : 180 ms QT Int : 482 ms P-R-T Axes : 000 045 050 degrees QTc Int : 555 ms Ventricular-paced rhythm Abnormal ECG Confirmed by SALLY FIGUEREDO DO ([id number]), subeditor JODIE GARSIA ([id number]) on 07/02/2017 2:48:27 PM Referred By: Confirmed By:SALLY FIGUEREDO DO
== END 2017-06-21 11:03 | disposition home health service (06) | DRG 194 ==
LOC: ERS 09:58 → 2NO 13:27
PROVIDERS: ADMIT Internal Medicine; ATTEND Internal Medicine
PROC: 30233N1 Transfusion of Nonautologous Red Blood Cells into Peripheral Vein, Percutaneous Approach (ICD-10-PCS; principal; 2017-06-18)
DX: J15.9 Unspecified bacterial pneumonia (principal); E44.0 Moderate protein-calorie malnutrition; I13.0 Hypertensive heart and chronic kidney disease with heart failure and stage 1 through stage 4 chronic kidney disease, or unspecified chronic kidney disease; E11.22 Type 2 diabetes mellitus with diabetic chronic kidney disease; I95.9 Hypotension, unspecified; I48.2 Chronic atrial fibrillation; I50.22 Chronic systolic (congestive) heart failure; L97.511 Non-pressure chronic ulcer of other part of right foot limited to breakdown of skin; D63.1 Anemia in chronic kidney disease; N18.3 Chronic kidney disease, stage 3 (moderate); Z79.01 Long term (current) use of anticoagulants; E78.5 Hyperlipidemia, unspecified; G30.9 Alzheimer's disease, unspecified; F02.80 Dementia in other diseases classified elsewhere, unspecified severity, without behavioral disturbance, psychotic disturbance, mood disturbance, and anxiety; F17.290 Nicotine dependence, other tobacco product, uncomplicated; Z95.810 Presence of automatic (implantable) cardiac defibrillator; N40.0 Benign prostatic hyperplasia without lower urinary tract symptoms; H40.9 Unspecified glaucoma; K59.00 Constipation, unspecified; Z68.23 Body mass index [BMI] 23.0-23.9, adult
CPT/HCPCS: 36415; 36416; 36430; 71045; 80048; 80053; 80061; 81003; 82274; 82550; 82553; 82728; 83036; 83540; 83550; 83605; 84484; 85025; 85610; 85730; 86850; 86900; 86901; 87040; 87086; 87633; 93005; 96365; 96366; 96375; 99214; A4216; G0463; G8978-GP-CL; G8979-GP-CJ; G8987-GO-CJ; G8988-GO-CH; J0696; J1756; J1940; J1956; J7050; P9016

== ENCOUNTER 2018-08-06 12:07 | Observation (INO) | payer MEDICARE, BC ==
[2018-08-06 12:45] LABS: #Eosinphils 0.5 thou/uL (0.0-0.7); #Lymphocytes 1.4 thou/uL (1.20-3.40); #Monocytes 0.7 thou/uL (0.11-0.59); #Neutrophils 3.6 thou/uL (1.40-6.50); %Basophils 0.8 % (0.0-1.0); %Eosinophils 7.3 % (0.0-10.0); %Lymphocytes 22.8 % (21.0-51.0); %Monocytes 11.8 % (0.0-10.0); %Neutrophils 57.4 % (42.0-75.0); Hemoglobin 12.9 g/dL (14.0-18.0); Mean Corpuscular HGB CONC 30.1 g/dL (32.0-36.0); Mean Corpuscular Hemoglobin 29.4 pg (27.0-31.0); Mean Corpuscular Volume 97.8 fL (78.0-98.0); Mean Platelet Volume 8.7 fL (7.4-10.4); Platelet Count 167 thou/uL (130-400); RBC Distribution Width 14.4 % (11.5-14.5); Red Blood Cell (RBC) Count 4.38 mill/uL (4.70-6.10); White Blood Cell (WBC) Count 6.2 thou/uL (4.8-10.8)
[2018-08-06 13:03] LABS: ALT (SGPT) 18 U/L (8-55); AST (SGOT) 28 U/L (5-34); Albumin 3.6 g/dL (3.4-4.8); Alkaline Phosphatase 175 U/L (40-150); Anion Gap 14 mmol/L (10-20); BUN (Urea Nitrogen) 34 mg/dL (8.4-25.7); Bilirubin, Total 1.3 mg/dL (0.2-1.2); Calc. Creatinine Clearance 0 mL/min (70-130); Calcium 9.3 mg/dL (7.8-10.44); Carbon Dioxide 31 mmol/L (23-31); Chloride 95 mmol/L (98-107); Estimated GFR-MDRD 45; Globulin 4.1 g/dL (2.4-3.5); Glucose 70 mg/dL (83-110); Potassium 3.8 mmol/L (3.5-5.1); Protein, Total 7.7 g/dL (5.8-8.1); Sodium 136 mmol/L (136-145)
[2018-08-06 13:32] LABS: CKMB 5.7 ng/mL (0-6.6)
[2018-08-06 13:33] LABS: Digoxin 1.02 ng/mL (0.8-2.0)
--- NOTE | 2018-08-06 13:51 | RAD ---
RADIOGRAPH CHEST 1 VIEW: Date: 08/06/2018. Time: 12:09 p.m. HISTORY: An 83-year-old male with chest pain. COMPARISON: 06/18/2017. FINDINGS: Previously seen moderately large consolidation of right lower lobe has improved. There is residual m ilder infiltrate in right lower lobe now. There is a residual small to moderate sized right pleural effusion. The airspace oacity in the contralateral left lower lobelung base has improved or resolved, now with clear visualization of the left hemidiaphragmatic shadow. Again noted are the cardiomegaly and the l eft subclavian AICD. Upper lobes are grossly clear. No pneumothorax or pulmonary edema. IMPRESSION: 1. Interval improvement in the right lower lobe infiltrate. 2. Interval resolution of the left lower lobe infiltrate. 3. Right pleural effusion remains. 4. Cardiomegaly. TAMEKA [] POS: NIA
[2018-08-06 16:29] LABS: Troponin I 0.257 ng/mL (< 0.028)
[2018-08-06] MEDS ORDERED: Acetaminophen 325 MG TAB ONE (17:01)
[2018-08-06 19:17] LABS: Troponin I 0.269 ng/mL (< 0.028)
[2018-08-06 22:19] VITALS: BMI 19.2
[2018-08-06] MEDS ORDERED: Ondansetron PF 4 MG/2 ML Vial IVP PRN (22:42)
[2018-08-06] MEDS ORDERED: Ondansetron ODT 4 MG TAB SL PRN (22:42)
[2018-08-06] MEDS ORDERED: Artificial Tears 18 DROP/0.9 ML EA EYE PRN (23:01)
[2018-08-06] MEDS ORDERED: Non-Formulary Item 1 EACH (Tadalafil [Cialis] 5 MG) PO SCH (23:15)
[2018-08-06] MEDS ORDERED: Finasteride 5 MG TAB PO SCH (23:15)
[2018-08-06] MEDS ORDERED: Apixaban 2.5 MG TAB PO SCH (23:15)
[2018-08-06] MEDS ORDERED: Brimonidine Tartrate 0.2% Ophth Soln 5 ml Bottle EA EYE SCH (23:15)
[2018-08-06] MEDS ORDERED: Tamsulosin HCl 0.4 MG CAP PO SCH (23:15)
[2018-08-07] MEDS ORDERED: Dextrose 5% in Water 1,000 ML IV PRN (02:01)
[2018-08-07] MEDS ORDERED: Dextrose 50% Abboject 50 ML SYRINGE SLOW IVP PRN (02:01)
[2018-08-07] MEDS ORDERED: Insulin Regular 300 UNITS/3 ML VIAL SC PRN ×2 (02:01)
[2018-08-07] MEDS ORDERED: Nitroglycerin 0.4 MG TAB (25 Tab Bottle) PO PRN (02:01)
[2018-08-07] MEDS ORDERED: Acetaminophen 325 MG TAB PO PRN (02:03)
[2018-08-07] MEDS ORDERED: Calcium Carbonate 500 MG ChewTAB PO PRN (02:03)
[2018-08-07] MEDS ORDERED: Senokot S 8.6-50 MG TAB PO PRN (02:03)
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
[2018-08-07] MEDS ORDERED: Ferrous Sulfate 325 MG TAB PO SCH (08:00)
[2018-08-07] MEDS ORDERED: Cyproheptadine 4 MG TAB PO SCH (09:00)
[2018-08-07] MEDS ORDERED: Brimonidine Tartrate 0.2% Ophth Soln 5 ml Bottle EA EYE SCH (09:00)
[2018-08-07] MEDS ORDERED: Potassium Chloride 10 MEQ TAB PO SCH (09:00)
[2018-08-07] MEDS ORDERED: Furosemide 20 MG TAB PO SCH (09:00)
[2018-08-07] MEDS ORDERED: Apixaban 2.5 MG TAB PO SCH (09:00)
[2018-08-07] MEDS ORDERED: Finasteride 5 MG TAB PO SCH ×2 (09:00→21:00)
[2018-08-07] MEDS ORDERED: Digoxin 0.125 MG TAB PO SCH (09:00)
[2018-08-07 15:54] VITALS: BP 111/55; TEMP 97.8
--- NOTE | 2018-08-07 18:04 | DIS ---
DATE OF ADMISSION: 08/06/2018 DATE OF DISCHARGE: 08/07/2018 CHIEF DIAGNOSES: 1. Atypical chest pain. 2. Ischemic cardiomyopathy with ejection fraction in 20s. 3. Chronic atrial fibrillation, on Eliquis. 4. Chronic systolic and diastolic heart failure. 5. Benign prostatic hyperplasia. 6. Type 2 diabetes mellitus. 7. Chronic kidney disease stage 3. 8. Sensorineural deficits. 9. Chronic obstructive pulmonary disease. 10. Elevated troponin. 11. Hypertension. 12. Hyperlipidemia. CONSULT: Cardiology. HOSPITAL COURSE: The patient with multiple risk factors for coronary artery disease with a known ischemic cardiomyopathy with ejection fraction in 20s as well as chronic systolic and diastolic heart failure and type 2 diabetes, admitted with acute onset of chest pain, which was thought to be substernal, described as heaviness but without any radiation. Chest pain reportedly started while in discharge. The patient was found to have mild elevation in troponin, but also has history of chronic elevation in troponin. He was treated with a sublingual nitroglycerin with improvement in chest pain. Chest pain, however, was intermittent with last episode being on the morning of discharge. He reported that has not resolved. Cardiology consult was requested, and Cardiology was reviewed, there is no further treatment to be provided for this patient other than continuation of medical management. Hospice Care was discussed with the patient's POA, that is his daughter. She seems interested in this, but however, had no time to follow up on this. I will prefer the patient be discharged back home since she will be traveling to [facility]. In view of these, the patient was discharged home with home health. Palliative Care saw the patient during this hospitalization, but there was no time, and the patient's relative would not allow any time for further arrangement. She stated she would follow up with the PCP for arrangement of hospice. PHYSICAL EXAMINATION: VITAL SIGNS: Temperature 97.8, pulse 80, respiratory rate 18, SpO2 94 on room air, blood pressure 111/55. GENERAL: An elderly male, in no obvious distress. Afebrile, anicteric, acyanotic. HEENT: Normocephalic and atraumatic. Oral mucosa is moist. LUNGS: Clear to auscultation bilaterally with no crackles or rhonchi. CARDIOVASCULAR: Regular rhythm and rate with normal heart sounds 1 and 2. Soft systolic murmur is heard over the precordium. GI: Abdomen is full, soft, nontender, nondistended with normal bowel sounds. EXTREMITIES: Grossly normal looking for age with no edema or erythema. NEUROLOGIC: Conscious and alert and oriented x3 with appropriate mental status. The patient is hard of hearing and has limited conversation. The patient moves all extremities. DISCHARGE MEDICATIONS: 1. Eliquis 2.5 mg b.i.d. 2. Alphagan eyedrops b.i.d. 3. Cyproheptadine 4 mg b.i.d. 4. Darifenacin 7.5 mg daily. 5. Digoxin 0.125 mg daily. 6. Proscar 5 mg daily. 7. Lasix 40 mg daily. 8. Glimepiride 0.5 mg daily. 9. Levocetirizine 5 mg at bedtime. 10. Metolazone as needed. 11. Potassium chloride 10 mEq twice daily. 12. Januvia 50 mg daily. 13. Cialis 5 mg daily at bedtime. 14. Flomax 0.4 mg at bedtime. 15. Ferrous sulfate 325 mg b.i.d. CONDITION AT DISCHARGE: Improved and stable. DISPOSITION: Home with home health. FOLLOWUP: The patient is to follow with PCP within 7 days. Job ID: [id number]
[2018-08-07] MEDS ORDERED: Tamsulosin HCl 0.4 MG CAP PO SCH (21:00)
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
--- NOTE | 2018-08-12 17:12 | EKG ---
Test Reason : Blood Pressure : / mmHG Vent. Rate : 081 BPM Atrial Rate : 081 BPM P-R Int : 000 ms QRS Dur : 162 ms QT Int : 472 ms P-R-T Axes : 000 -07 058 degrees QTc Int : 548 ms Ventricular-paced rhythm Abnormal ECG Similar to 05/2017 Confirmed by NISHA SONG, DEVON ([id number]), video news editor JODIE GARSIA ([id number]) on 08/12/2018 5:11:39 PM Referred By: Confirmed By:DEVON CAMERON MD
== END 2018-08-07 16:56 | disposition home health service (06) ==
LOC: ERS 12:07 → ERHOLD 14:35 → 2SW 21:55
PROVIDERS: ADMIT Internal Medicine; ATTEND Internal Medicine
DX: R07.89 Other chest pain (principal); I25.5 Ischemic cardiomyopathy; I48.2 Chronic atrial fibrillation; I13.0 Hypertensive heart and chronic kidney disease with heart failure and stage 1 through stage 4 chronic kidney disease, or unspecified chronic kidney disease; E11.22 Type 2 diabetes mellitus with diabetic chronic kidney disease; N18.3 Chronic kidney disease, stage 3 (moderate); I50.42 Chronic combined systolic (congestive) and diastolic (congestive) heart failure; D63.1 Anemia in chronic kidney disease; N40.0 Benign prostatic hyperplasia without lower urinary tract symptoms; J44.9 Chronic obstructive pulmonary disease, unspecified; E78.5 Hyperlipidemia, unspecified; H90.5 Unspecified sensorineural hearing loss; Z86.73 Personal history of transient ischemic attack (TIA), and cerebral infarction without residual deficits; Z79.01 Long term (current) use of anticoagulants; Z79.84 Long term (current) use of oral hypoglycemic drugs; Z79.899 Other long term (current) drug therapy; Z88.8 Allergy status to other drugs, medicaments and biological substances; Z95.810 Presence of automatic (implantable) cardiac defibrillator
CPT/HCPCS: 71045; 80053; 80162; 82553; 82962; 83880; 84484 ×2; 85025; 93005; 94760; 97139; 99285; G0378 ×2; 36415; 36416

== ENCOUNTER 2018-09-03 03:03 | Inpatient (IN) | payer MEDICARE, BC ==
[2018-09-03] MEDS ORDERED: Morphine 2 MG/ML SYRINGE ONE ×2 (03:36→05:45)
[2018-09-03] MEDS ORDERED: hydrALAZINE 20 MG/ML VIAL SLOW IVP PRN (06:13)
[2018-09-03] MEDS ORDERED: Dextrose 50% Abboject 50 ML SYRINGE SLOW IVP PRN (06:13)
[2018-09-03] MEDS ORDERED: Ketorolac Tromethamine 30 MG/ML VIAL IVP SCH (06:13)
[2018-09-03] MEDS ORDERED: Ondansetron ODT 4 MG TAB PO PRN (06:13)
[2018-09-03] MEDS ORDERED: Dextrose 5% in Water 1,000 ML IV PRN (06:13)
[2018-09-03] MEDS ORDERED: Ondansetron PF 4 MG/2 ML Vial IVP PRN (06:13)
[2018-09-03] MEDS: Acetaminophen 1,000 MG in Premix Bag 1 BAG IVPB SCH ×3 (07:00→18:10)
[2018-09-03 07:38] LABS: #Eosinphils 0.1 thou/uL (0.0-0.7); #Lymphocytes 0.8 thou/uL (1.20-3.40); #Monocytes 1.1 thou/uL (0.11-0.59); #Neutrophils 6.9 thou/uL (1.40-6.50); %Basophils 0.4 % (0.0-1.0); %Eosinophils 0.9 % (0.0-10.0); %Lymphocytes 8.6 % (21.0-51.0); %Monocytes 12.6 % (0.0-10.0); %Neutrophils 77.4 % (42.0-75.0); Hemoglobin 10.7 g/dL (14.0-18.0); Mean Corpuscular HGB CONC 31.4 g/dL (32.0-36.0); Mean Corpuscular Volume 95.4 fL (78.0-98.0); Mean Platelet Volume 9.2 fL (7.4-10.4); Platelet Count 133 thou/uL (130-400); RBC Distribution Width 15.2 % (11.5-14.5); Red Blood Cell (RBC) Count 3.57 mill/uL (4.70-6.10); White Blood Cell (WBC) Count 8.9 thou/uL (4.8-10.8)
[2018-09-03 07:52] LABS: Anion Gap 12 mmol/L (10-20); BUN (Urea Nitrogen) 31 mg/dL (8.4-25.7); Calc. Creatinine Clearance 0 mL/min (70-130); Calcium 8.5 mg/dL (7.8-10.44); Carbon Dioxide 27 mmol/L (23-31); Chloride 100 mmol/L (98-107); Estimated GFR-MDRD 45; Glucose 131 mg/dL (83-110); Potassium 4.4 mmol/L (3.5-5.1); Sodium 135 mmol/L (136-145)
[2018-09-03] MEDS ORDERED: Famotidine 20 MG TAB ONE (09:12)
[2018-09-03] MEDS: Famotidine 20 MG TAB PO SCH ×2 (09:14→20:18)
--- NOTE | 2018-09-03 10:30 | RAD ---
FPortable chest radiograph: 09/03/2018 COMPARISON: 08/06/2018 HISTORY:Congestive heart failure FINDINGS: Stable multilead transvenous AICD inserted via a left subclavian approach. Cardiac silhouet te is enlarged. No pneumothorax is evident. There is blunting of the right costophrenic angle, consis tent with right pleural effusion. Pulmonary vascular congestion present with perihilar and bibasilar interstitial prominence, right greater than left. IMPRESSION: Pulmonary vascular congestion and interstitial prominence with prominent cardiac silhouet te and small right pleural effusion. Findings suggest pulmonary edema. Follow-up imaging following tr eatment to document resolution advised.
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
[2018-09-03] MEDS: Morphine 4 MG/ML VIAL SLOW IVP PRN ×2 (11:55→20:17)
[2018-09-03] MEDS: Sodium Chloride 0.9% 1,000 ML IV SCH ×3 (11:56→22:27)
--- NOTE | 2018-09-03 12:51 | CON ---
DATE OF CONSULTATION: 09/03/2018 BRIEF HISTORY OF PRESENT ILLNESS: Mr. Rebolledo is examined today in the emergency department at [facility] in [place]. His daughter is at bedside. They report that he lives independently and late in the evening on the 02 of September, he sustained a ground-level fall, landing on his left side. He was seen and evaluated at the facility in [place], where a workup included a CT scan of the pelvis, which showed evidence of a left acetabular fracture. This was involving both columns as well as the quadrilateral surface of the acetabulum, but with minimal displacement and no significant protrusio of the acetabular head. With this finding, the patient subsequently transferred to [facility] in [place] for admission to the Trauma Service and Orthopedic consultation. The patient denies loss of consciousness. PAST MEDICAL HISTORY: Significant for atrial fibrillation, hypertension, congestive heart failure, history of ischemic stroke, diabetes, glaucoma, and osteoarthritis. PAST SURGICAL HISTORY: Includes AICD, bowel surgery, right leg surgery, melanoma excision, and chest biopsy. MEDICATIONS: Include, 1. Eliquis. 2. Digoxin. 3. Glimepiride. 4. Proscar. 5. Januvia. 6. Enablex. 7. Xyzal. 8. Flomax. 9. Cialis. 10. Tylenol. ALLERGIES: ASPIRIN, LISINOPRIL, AND TROSPIUM. SOCIAL HISTORY: He lives in the [place] area. He lives alone. He does have assistance at home and his daughter lives in the [place] area. He has a past history of smoking, although has not done so recently. Denies drug or significant alcohol use. FAMILY HISTORY: Noncontributory for this acetabular fracture. REVIEW OF SYSTEMS: Denies recent fevers, chills, or sweats. Denies chest pain or shortness of breath. He does have numbness in bilateral lower extremities with a baseline neuropathy. PHYSICAL EXAMINATION: VITAL SIGNS: Temperature 98.1, heart rate of 80, respiratory rate of 18, and blood pressure of 115/68. GENERAL: He is examined in his hospital [facility] at [facility]. He does wince with some pain localized to the left hip region. HEENT: Atraumatic and normocephalic. HEART: Shows a regular rate and rhythm. I do not appreciate a murmur. LUNGS: Clear to auscultation with a nontender chest wall. ABDOMEN: Benign. PELVIS: Remarkable for no instability with compression, but with compression, he feels pain along the iliac wing as well as the left groin. EXTREMITIES: Bilateral upper extremities are atraumatic for bruising. The right lower extremity is atraumatic at hip, knee, ankle, and foot. The left lower extremity is remarkable for groin pain with any type of thigh motion. The knee, ankle, and foot are atraumatic. 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 LABORATORY DATA: White count of 8.9, hematocrit of 34, and platelets 133,000. X-RAYS: An attempted AP pelvis was performed, however, this was oblique and difficult to assess the true nature of his acetabular fracture. CT scan from [place] is as described in the history of present illness. ASSESSMENT: An 83-year-old gentleman, status post ground-level fall, sustaining a left acetabular fracture with involvement of both columns, however, no significant displacement. PLAN: Today, I discussed with the patient and his daughter that given the congruency of the acetabulum as well as his significant comorbidities, I believe nonsurgical management is appropriate. He needs to be strict nonweightbearing on this left lower extremity. We will have Case Management become involved to work on placement options given the inability to bear weight on the leg. He will probably be predominantly [id number] mobility, although we will see how he does with physical therapy with his weight restrictions. We will follow the patient while he is here in the hospital with the Trauma Service. Job ID: [id number]
[2018-09-03] MEDS: Cyclobenzaprine 10 MG TAB PO PRN (16:58)
[2018-09-04] MEDS ORDERED: Metolazone 5 MG TAB PO PRN (00:40)
[2018-09-04] MEDS ORDERED: traMADol HCl 50 MG TAB PO PRN ×2 (00:45)
[2018-09-04] MEDS: Acetaminophen 1,000 MG in Premix Bag 1 BAG IVPB SCH ×2 (01:41→06:43)
[2018-09-04 05:53] LABS: #Basophils 0.1 thou/uL (0.0-0.2); #Eosinphils 0.2 thou/uL (0.0-0.7); #Lymphocytes 1.3 thou/uL (1.20-3.40); #Neutrophils 5.8 thou/uL (1.40-6.50); %Basophils 0.8 % (0.0-1.0); %Eosinophils 2.5 % (0.0-10.0); %Lymphocytes 15.1 % (21.0-51.0); %Monocytes 11.9 % (0.0-10.0); %Neutrophils 69.6 % (42.0-75.0); Hemoglobin 10.9 g/dL (14.0-18.0); Mean Corpuscular Hemoglobin 30.6 pg (27.0-31.0); Mean Corpuscular Volume 98.7 fL (78.0-98.0); Mean Platelet Volume 9.7 fL (7.4-10.4); Platelet Count 125 thou/uL (130-400); RBC Distribution Width 15.4 % (11.5-14.5); Red Blood Cell (RBC) Count 3.58 mill/uL (4.70-6.10); White Blood Cell (WBC) Count 8.3 thou/uL (4.8-10.8)
[2018-09-04 06:13] LABS: Anion Gap 14 mmol/L (10-20); BUN (Urea Nitrogen) 33 mg/dL (8.4-25.7); Calc. Creatinine Clearance 30 mL/min (70-130); Calcium 8.3 mg/dL (7.8-10.44); Carbon Dioxide 25 mmol/L (23-31); Chloride 101 mmol/L (98-107); Estimated GFR-MDRD 38; Glucose 63 mg/dL (83-110); Potassium 4.7 mmol/L (3.5-5.1); Sodium 135 mmol/L (136-145)
[2018-09-04] MEDS: Furosemide 20 MG TAB PO SCH ×2 (06:43→14:13)
--- NOTE | 2018-09-04 07:48 | HP ---
ADDENDUM: This is an addendum to the H and P dictated by SATURNINO Ling. For full details, please see his note, the details of which I have confirmed. HISTORY OF PRESENT ILLNESS: In short, Mr. Rebolledo is an 83-year-old man who fell in his bathroom last night. He called his daughter who lives next door and was brought to the [facility] and found to have a left acetabular fracture. The daughter states that his condition has been declining, so that he has aid to come in during the day to help him. ALLERGIES: ASPIRIN, LISINOPRIL, AND TROSPIUM. MEDICATIONS: 1. Eliquis at home for stroke due to an arrhythmia. 2. He also takes Lasix. 3. Digoxin. 4. Glimepiride. 5. Cyproheptadine. 6. Proscar. 7. Januvia. 8. Enablex. 9. Xyzal. 10. Flomax. 11. Cialis. 12. Alphagan. 13. B12. 14. Tylenol. Dr. Murguia is his occupational therapy technician. PAST MEDICAL HISTORY: Atrial fibrillation with resulting CVA, diabetes, hypertension, osteoarthritis, glaucoma, BPH, and CHF. He has had melanomas removed, perforated bowel and a pacemaker/AICD. SOCIAL HISTORY: The patient does not currently smoke, drinks or use illicit drugs. 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 He used to smoke a pipe. REVIEW OF SYSTEMS: Limited due to the patient's extreme hearing loss, however according to the daughter he has not been complaining of anything out prior to his fall. PHYSICAL EXAMINATION: VITAL SIGNS: Afebrile, heart rate 72, respirations 16, 94% saturated on room air. GENERAL: Reveals a frail elderly gentleman who is lying in bed, intermittently responsive. He does not answer most of my questions, but does answer some questions for his daughter. He refused multiple aspects of the physical examination, but a complete examination was attempted. He did not have any apparent tenderness to palpation of his neck, chest, or upper extremities, he yells and pushed my hand whenever I try to examine his abdomen. He has a midline incision and evidence of non-incarcerated hernia. There is no bruising or external evidence of trauma to his abdomen. EXTREMITIES: Warm and well perfused with minimal ankle edema. NEUROLOGIC: No focal deficit. PSYCHIATRIC: Unable to evaluate, but the patient does arouse voice and attempts to answer questions, although he usually answers incorrectly due to severe hearing loss. LABORATORY DATA: White count is normal, hematocrit 34, platelets 133, BUN and creatinine are mildly elevated at 31 and 1.5, and troponin is mildly elevated at 0.220. Pelvis CT showed a comminuted left acetabular fracture with a left hemipelvic hematoma and right femur hardware with streak artifact. No intraabdominal abnormalities were noted and no free fluid in the pelvis. ASSESSMENT: Left acetabular fracture with pelvic hematoma. Hematocrit is stable since presentation in the outside emergency room. We will continue to track this. His abdominal tenderness is likely related to this, but I did ask the nurse to perform a bladder scan in case he is experiencing urinary retention. He has had recent decline in his functional status and the daughter is aware of his to continue with tenuous medical prognosis. I specifically discussed code status with her and she states that her father has refused to discuss it with her and does not feel that he can place upon the patient's limitations on his care or make those decisions currently. He has his next of kin and does not want to artificially prolong his life as he does not have a reasonable chance of recovery. However, she is aware of that in the event of a code, chest compressions, electric shocks and medications and intubation would all be administered unless he or she decide against that. Currently orthopedics plans to manage his fracture non operatively and we will have to hold his blood thinners given his pelvic hematoma. Job ID: [id number]
[2018-09-04] MEDS: Sodium Chloride 0.9% 1,000 ML IV SCH ×2 (08:48→20:46)
[2018-09-04] MEDS: Potassium Chloride 10 MEQ TAB PO SCH (08:49)
[2018-09-04] MEDS: Digoxin 0.125 MG TAB PO SCH (08:49)
[2018-09-04] MEDS: Cyproheptadine 4 MG TAB PO SCH ×2 (08:52→20:44)
[2018-09-04] MEDS: Glimepiride 1 MG TAB PO SCH (08:52)
[2018-09-04] MEDS: Brimonidine Tartrate 0.2% Ophth Soln 5 ml Bottle EA EYE SCH ×2 (08:57→20:44)
[2018-09-04] MEDS ORDERED: Apixaban 2.5 MG TAB PO SCH (09:00)
[2018-09-04] MEDS ORDERED: Cyanocobalamin 1000 MCG/ML VIAL IM SCH (09:00)
[2018-09-04] MEDS ORDERED: DARIFENACIN HYDROBROMIDE 7.5 MG PO SCH ×2 (12:00)
[2018-09-04] MEDS: Apixaban 2.5 MG TAB PO SCH ×2 (12:09→20:45)
[2018-09-04] MEDS: Acetaminophen 500 MG TAB PO SCH ×3 (12:16→23:52)
[2018-09-04] MEDS: Finasteride 5 MG TAB PO SCH (12:16)
[2018-09-04 12:20] VITALS: BMI 20.6
--- NOTE | 2018-09-04 20:32 | PRG ---
DATE OF SERVICE: 09/04/2018 SUBJECTIVE: The patient is hospital day 2, status post ground level fall when he sustained an acetabular fracture that after evaluation by Orthopedics was determined that it would be best treated nonoperatively. The patient has been attempting to work with Physical and Occupational Therapy. Those has been somewhat difficult due to some altered mental status, possibly from medications or owning. The patient does seem to be pain controlled and when his daughter is able to, he will eat a small amount. His appetite has been low prior to this fall also. OBJECTIVE: VITAL SIGNS: Temperature is 97.8, heart rate 79, blood pressure 85/54, respirations 16, oxygen saturation 93% on room air. GENERAL: The patient is resting in bed. He is awake and will verbalize though his conversation usually reverts back to his home situation describing things. He will answer extremely simple questions and follow very simple commands. HEENT: Unchanged. LUNGS: Continuous scant rhonchi bilaterally. HEART: Regular rate and rhythm. ABDOMEN: Soft, flat, nontender with active bowel sounds. EXTREMITIES: Neurovascularly intact x4. LABORATORY FINDINGS: Sodium 135, potassium 4.7, chloride 101, CO2 of 25, BUN 33, creatinine 1.71, glucose 63. Cortisol 12.7. White blood cell count 8.3, hemoglobin 10.9, hematocrit 35.3, platelets 125. There are no radiographs reviewed this morning. ASSESSMENT: 1. Status post ground level fall. 2. Left acetabular fracture. 3. Left-sided pelvic hematoma. 4. Wpffy-rv-ipiybak kidney injury. 5. History of hypertension. 6. History of automatic implantable cardioverter-defibrillator. 7. History of atrial fibrillation. 8. History of Eliquis use. 9. History of benign prostatic hypertrophy. 10. History of type 2 diabetes. PLAN: Plan will be to continue supportive care. The patient has had urinary retention issues, which have been treated with in and out catheterization x2. Should the patient require another urinary catheter, we will leave one in place. The patient has been restarted all his home medications and we will continue to follow along. The patient is likely to be placed in a residential facility and eventually will probably need residential care. The daughter was amiable to this during our discussion this morning during rounds. Job ID: [id number]
[2018-09-04] MEDS: Loratadine 10 MG TAB PO SCH (20:45)
[2018-09-04] MEDS: Famotidine 20 MG TAB PO SCH (20:45)
[2018-09-04] MEDS: Tamsulosin HCl 0.4 MG CAP PO SCH (20:45)
[2018-09-04] MEDS ORDERED: Tadalafil [Cialis] 5 MG PO SCH (21:00)
[2018-09-04] MEDS ORDERED: LEVOCETIRIZINE DIHYDROCHLORIDE 5 MG PO SCH (21:00)
[2018-09-05] MEDS: Sodium Chloride 0.9% 1,000 ML IV SCH ×2 (00:04→20:26)
[2018-09-05] MEDS: Acetaminophen 500 MG TAB PO SCH ×3 (06:37→17:37)
[2018-09-05] MEDS: Furosemide 20 MG TAB PO SCH ×2 (06:39→14:23)
[2018-09-05] MEDS ORDERED: Cosyntropin 250 MCG VIAL SLOW IVP SCH (09:30)
[2018-09-05] MEDS: Digoxin 0.125 MG TAB PO SCH (09:33)
[2018-09-05] MEDS: Apixaban 2.5 MG TAB PO SCH ×2 (09:33→20:36)
[2018-09-05] MEDS: Potassium Chloride 10 MEQ TAB PO SCH (09:34)
[2018-09-05] MEDS: Glimepiride 1 MG TAB PO SCH (09:34)
[2018-09-05] MEDS: Brimonidine Tartrate 0.2% Ophth Soln 5 ml Bottle EA EYE SCH ×2 (09:34→20:37)
[2018-09-05] MEDS: Finasteride 5 MG TAB PO SCH (11:24)
--- NOTE | 2018-09-05 12:15 | PQF ---
CLINICAL DOCUMENTATION IMPROVEMENT CLARIFICATION FORM: ICD-10 Updated PLEASE DO AN ADDENDUM TO THE PROGRESS NOTE WITH ANY DOCUMENTATION UPDATES OR ADDITIONS AND CARRY THROUGH TO DC SUMMARY. THANK YOU. DATE: 09/05/18 ATTN : Rosenda MANZO PA-C Please exercise your independent, professional judgment in responding to the clarification form. Clinical indicators are provided on the bottom of this form for your review Please check appropriate box(s): HEART FAILURE: A. TYPE: [ ] Systolic / HFrEF [ ] Diastolic / HFpEF [ ] Combined Systolic / Diastolic B. ACUITY [ ] Acute [ ] Acute on Chronic [ ] Chronic [ ] Other diagnosis [ ] Unable to determine In addition, please specify: Present on Admission (POA): [ ] Yes [ ] No [ ] Unable to determine For continuity of documentation, please document condition throughout progress notes and discharge summary. Thank You. CLINICAL INDICATORS - SIGNS / SYMPTOMS / LABS ER NOTE: "CONGESTIVE HEART FAILURE" CHEST XRAY: "PULMONARY VASCULAR CONGESTION AND INTERSTITIAL PROMINENCE WITH PROMINENT CARDIAC SILHOUETTE AND SMALL RIGHT PLEURAL EFFUSION. FINDINGS SUGGEST PULMONARY EDEMA." ECHO REPORT: "EJECTION FRACTION IS VISUALLY ESTIMATED AT 25-30%" RISKS: H/O HTN AFIB TREATMENT: ECHOCARDIOGRAM PO LASIX (This form is maintained as a part of the permanent medical record) 2014 [employer]. All Rights Reserved JORDAN [email or web address] Office: [phone] [facility]ENTERChar
[2018-09-05] MEDS: Cyproheptadine 4 MG TAB PO SCH ×2 (12:49→20:36)
--- NOTE | 2018-09-05 14:03 | PRG ---
DATE OF SERVICE: 09/05/2018 SUBJECTIVE: This patient is hospital day 3, status post ground level fall. During which, he sustained an acetabular fracture that after evaluation by Orthopedic Surgery, is determined to be nonoperative treatment. PT and OT evaluation and treatment are underway, reporting some improvement with ambulation, difficulty secondary to altered mental status versus acute delirium. The patient is tolerating p.o. well, and pain reportedly well controlled. OBJECTIVE: VITAL SIGNS: Blood pressure remains low at 91/53. Remainder of the vital signs are stable. Saturating well on room air. GENERAL: The patient is sleeping comfortably in bed with daughter at bedside. He is arousable to focal stimulation. HEENT: NC/AT. LUNGS: Good respiratory effort. Inspiration and expiration, equal. CHEST/ABDOMEN: Flat, nondistended. EXTREMITIES: Neurovascularly intact x4. LABORATORY FINDINGS AND IMAGING: Cortisol 12.7. Cortrosyn Stim test pending. ASSESSMENT: 1. Status post ground level fall. 2. Left acetabular fracture. 3. Left-sided pelvic hematoma. 4. Acute on chronic kidney injury. 5. History of hypotension. 6. History of AICD. 7. History of atrial fibrillation. 8. History of Eliquis use. 9. History of type 2 diabetes. PLAN: The patient is improving from PT, OT standpoint. The patient's general disposition and home situation require admission to a long term facility, that dispo is pending insurance approval. Regarding the patient's hypertensive episodes, a cortisol stimulation test has been ordered and plan to treat as necessary pending results. The patient was seen and evaluated on morning rounds with Dr. Wes Carias. Job ID: [id number]
[2018-09-05] MEDS ORDERED: traMADol HCl 50 MG TAB PO PRN (20:04)
[2018-09-05] MEDS: Cyclobenzaprine 10 MG TAB PO PRN (20:35)
[2018-09-05] MEDS: Famotidine 20 MG TAB PO SCH (20:36)
[2018-09-05] MEDS: Loratadine 10 MG TAB PO SCH (20:36)
[2018-09-05] MEDS: Tamsulosin HCl 0.4 MG CAP PO SCH (20:36)
[2018-09-06] MEDS: Acetaminophen 500 MG TAB PO SCH ×4 (01:02→11:31)
[2018-09-06] MEDS: Cyclobenzaprine 10 MG TAB PO PRN ×2 (05:06→15:41)
[2018-09-06] MEDS: Furosemide 20 MG TAB PO SCH ×2 (05:09→14:50)
[2018-09-06] MEDS: Apixaban 2.5 MG TAB PO SCH (08:31)
[2018-09-06] MEDS: Glimepiride 1 MG TAB PO SCH (08:32)
[2018-09-06] MEDS: Brimonidine Tartrate 0.2% Ophth Soln 5 ml Bottle EA EYE SCH (08:32)
[2018-09-06] MEDS: Potassium Chloride 10 MEQ TAB PO SCH (08:34)
[2018-09-06] MEDS ORDERED: Hydrocortisone Sod Succ/PF 100 mg/2 ml Vial IVP SCH (08:45)
[2018-09-06] MEDS ORDERED: Digoxin 0.125 MG TAB PO SCH (09:00)
--- NOTE | 2018-09-06 09:11 | RAD ---
EXAM: Left hip radiographs 2 views PROVIDED CLINICAL HISTORY: Acetabular fracture COMPARISON: CT 09/03/2018 FINDINGS: Evaluation is limited due to overlying bowel content. The known left acetabular fracture is partially visualized. The left hip joint space appears preserved. IMPRESSION: Suboptimal evaluation of known left acetabular fracture.
[2018-09-06] MEDS: Finasteride 5 MG TAB PO SCH ×2 (11:05→11:31)
[2018-09-06] MEDS: Cyproheptadine 4 MG TAB PO SCH (11:14)
[2018-09-06] MEDS: Sodium Chloride 0.9% 1,000 ML IV SCH (11:29)
--- NOTE | 2018-09-06 12:18 | DIS ---
DATE OF ADMISSION: 09/03/2018 DATE OF DISCHARGE: 09/06/2018 RESIDENT: [email or web address] Mo DO CONSULTS: Dr. Joey Avila, Orthopedics. PROCEDURES: None. IMAGING: Chest x-ray significant for pulmonary vascular congestion, prominent cardiac silhouette. Hip x-ray significant for left acetabular fracture. PRIMARY DIAGNOSES: 1. Status post ground level fall with left acetabular fracture. 2. Left-sided pelvic hematoma. DISCHARGE MEDICATIONS: 1. Zaroxolyn 5 mg p.o. p.r.n. 2. Flomax 0.4 mg p.o. at bedtime. 3. Cialis 5 mg p.o. at bedtime. 4. Xyzal 5 mg p.o. at bedtime. 5. Januvia 50 mg p.o. at 1200 hours. 6. Proscar 5 mg p.o. at 1200 hours. 7. Darifenacin 7.5 mg p.o. at 1200 hours. 8. Klor-Con 10 mEq p.o. daily. 9. Glimepiride 0.5 mg p.o. every morning. 10. Lasix 20 mg p.o. b.i.d. 11. Eliquis 2.5 mg p.o. b.i.d. 12. Vitamin B12 1000 mcg IM q.28 days. 13. Digoxin 0.125 mg p.o. daily. 14. Brimonidine tartrate one drop each eye b.i.d. 15. Cyproheptadine 4 mg p.o. b.i.d. 16. Acetaminophen 1000 mg p.o. q.6 hours. 17. Cortef 10 mg p.o. b.i.d. Discontinued medications: None. HISTORY OF PRESENT ILLNESS/HOSPITAL COURSE: Mr. Smith Rebolledo is an 83-year-old male, who initially presented to the emergency department after a fall at home, not witnessed. He was able to notify help at that time and he was brought to the emergency room. He reported to have hip pain and imaging revealed a left acetabular fracture. He was deemed appropriate to admit to Trauma Service with Orthopedic evaluation. Orthopedic evaluation at that time recommended no surgical intervention. Daughter at baseline is patient's medical power of assistant prosecuting attorney and understands. The patient's hospital stay included pain being well controlled. Vital signs showed low blood pressures that was evaluated further. The patient was determined to have primary adrenal insufficiency and started on daily steroids. The patient's mentation was waxing and waning during this hospital admission. It is reported that there is possibly some dementia at baseline, though daughter denies this, but the patient is unable to care for himself and it has been decided along with the family whether it would be appropriate for long term facility. Placement was accepted and the patient was deemed stable from a medical standpoint for discharge. DISCHARGE INSTRUCTIONS: 1. Location, long term facility. 2. Diet: Regular. 3. Activity, as tolerated with PT, OT. 4. Follow up with PCP in 7 to 10 days. This patient was seen and evaluated on morning rounds by Dr. Wes Carias. Job ID: [id number]
[2018-09-06 16:06] VITALS: BP 105/69; TEMP 97.6
[2018-09-06] MEDS ORDERED: Hydrocortisone 10 mg Tablet PO SCH (21:00)
== END 2018-09-06 17:00 | DRG 536 ==
LOC: ERS 03:03 → ERHOLD 04:18 → SURG A 10:35
PROVIDERS: ADMIT Surgery; ATTEND Surgery
DX: S32.402A Unspecified fracture of left acetabulum, initial encounter for closed fracture (principal); N17.9 Acute kidney failure, unspecified; E27.1 Primary adrenocortical insufficiency; S30.0XXA Contusion of lower back and pelvis, initial encounter; I48.91 Unspecified atrial fibrillation; E11.9 Type 2 diabetes mellitus without complications; I10 Essential (primary) hypertension; M19.90 Unspecified osteoarthritis, unspecified site; N40.0 Benign prostatic hyperplasia without lower urinary tract symptoms; H40.9 Unspecified glaucoma; Z88.8 Allergy status to other drugs, medicaments and biological substances; Z86.73 Personal history of transient ischemic attack (TIA), and cerebral infarction without residual deficits; Z85.820 Personal history of malignant melanoma of skin; Z95.810 Presence of automatic (implantable) cardiac defibrillator; Z79.01 Long term (current) use of anticoagulants; W18.30XA Fall on same level, unspecified, initial encounter; Y92.009 Unspecified place in unspecified non-institutional (private) residence as the place of occurrence of the external cause
CPT/HCPCS: 36415; 36416; 71045; 80048; 80400; 82533; 85025; 93306; 94640; 96361; 96365; 96375; 96376; G0390; J0131; J0834; J2270; J3420; J7620